=== PATIENT | male | born 1985 | race African-American/Black ===

== ENCOUNTER 2019-02-21 22:56 | Emergency (ER) | payer OTHER ==
[2019-02-21] MEDS ORDERED: risperiDONE 1 MG TAB PO SCH (23:45)
== END 2019-02-22 00:21 | disposition home or self-care (01) ==
LOC: ERS 22:56
DX: F30.8 Other manic episodes (principal); F29 Unspecified psychosis not due to a substance or known physiological condition; F22 Delusional disorders; F17.200 Nicotine dependence, unspecified, uncomplicated
CPT/HCPCS: 99284